=== PATIENT | female | born 1945 | race Caucasian/White ===

== ENCOUNTER 2017-06-09 08:26 | Outpatient (CLI) | payer OTHER, MEDICAID | END 2017-06-09 21:00 | disposition home or self-care (01) | LOC: SMA 08:26 | PROVIDERS: ATTEND Internal Medicine | DX: Z12.31 Encounter for screening mammogram for malignant neoplasm of breast (principal) | CPT/HCPCS: G0202 ==

== ENCOUNTER 2018-12-01 12:41 | Outpatient (CLI) | payer OTHER, MEDICAID | END 2018-12-01 20:51 | disposition home or self-care (01) | LOC: SMA 12:41 | PROVIDERS: ATTEND Internal Medicine | DX: Z12.31 Encounter for screening mammogram for malignant neoplasm of breast (principal) | CPT/HCPCS: 77067 ==

== ENCOUNTER 2021-04-27 09:04 | Outpatient (CLI) | payer OTHER, MEDICAID | END 2021-04-27 20:14 | disposition home or self-care (01) | LOC: SMA 09:04 | DX: Z12.31 Encounter for screening mammogram for malignant neoplasm of breast (principal) | CPT/HCPCS: 77067 ==

== ENCOUNTER 2022-12-23 10:36 | Outpatient (CLI) | payer OTHER, MEDICAID | END 2022-12-23 20:19 | disposition home or self-care (01) | LOC: SMA 10:36 | PROVIDERS: ATTEND Surgery | DX: Z12.31 Encounter for screening mammogram for malignant neoplasm of breast (principal) | CPT/HCPCS: 77067 ==